=== PATIENT | male | born 1940 | race Caucasian/White ===

== ENCOUNTER 2022-03-23 17:44 | Emergency (ER) | payer MEDICARE, OTHER ==
[~2022-03-23] VITALS: Ht 177.8 cm; Wt 70.3 kg
[2022-03-23 18:23] LABS: APPEARANCE,URINE CLEAR (CLEAR); BILIRUBIN,URINE NEGATIVE (NEGATIVE); COLOR,URINE COLORLESS (YELLOW); GLUCOSE, URINE (UA) NEGATIVE (NEGATIVE); KETONES,URINE NEGATIVE (NEGATIVE); LEUKOCYTE ESTERASE ,URINE NEGATIVE Leu/uL (NEGATIVE); NITRATE,URINE NEGATIVE (NEGATIVE); OCCULT BLOOD,URINE LARGE (NEGATIVE); PH,URINE 5.5 (5.0-8.0); PROTEIN,URINE 50 mg/dL (NEGATIVE); UROBILINOGEN,URINE 0.2 mg/dL (0.2-1.0)
[2022-03-23 18:37] LABS: BACTERIA,URINE RARE /HPF (None Seen); RBC,URINE 51-100 /HPF (0-1)
[2022-03-23] MEDS ORDERED: TAMS-1 PO (18:51)
[2022-03-23] MEDS ORDERED: CEPH500B PO (18:51)
[2022-03-23] MEDS ORDERED: CEFTRIAXONE 1G VIAL IM ONE (19:00)
[2022-03-23 19:13] VITALS: BP 125/72
== END 2022-03-23 19:26 | disposition home or self-care (01) ==
LOC: EDH 17:44
DX: R31.9 Hematuria, unspecified (principal); E78.00 Pure hypercholesterolemia, unspecified
CPT/HCPCS: 99283; 81001; 96372; J0696